=== PATIENT | female | born 1990 | race Asian ===

== ENCOUNTER 2019-10-09 06:00 | Inpatient (IN) | payer OTHER ==
[2019-10-09] MEDS ORDERED: AMPICILLIN - 2 GM in SODIUM CHLORIDE 100 ML IVPB ONE (08:15)
[2019-10-09] MEDS ORDERED: LACTATED RINGERS SOLUTION 1,000 ML IV SCH (08:15)
[2019-10-09] MEDS ORDERED: PROMETHAZINE HCL 25 MG/1 ML VIAL IVPB ONE (08:15)
[2019-10-09] MEDS ORDERED: BUTORPHANOL TARTRATE 2 MG/ML VIAL IVPB ONE (08:15)
[2019-10-09 08:31] VITALS: BMI 31.4
[2019-10-09 09:07] LABS: INR 0.92 (0.83-1.09); PROTHROMBIN TIME (PATIENT) 10.8 SEC (9.7-13.0)
[2019-10-09 09:10] LABS: ACTIVATED PTT 29.5 SECONDS (25.2-36.5)
[2019-10-09] MEDS ORDERED: AMPICILLIN SODIUM 2 GM VIAL ONE (09:10)
[2019-10-09 09:12] LABS: BASO % 0.5 % (0-2.0); EOS % 0.7 % (0-4.5); HEMOGLOBIN 13.9 GM/dL (10.7-15.3); LYMPH % 23.8 % (8-40); MCH 30.1 pg (25.7-33.7); PLATELET COUNT 140 K/MM3 (134-434); RBC 4.62 M/mm3 (3.60-5.2); WHITE BLOOD COUNT 8.9 K/mm3 (4.0-10.0)
[2019-10-09 09:27] LABS: CALCIUM 8.9 mg/dL (8.5-10.1); CREATININE 0.5 mg/dL (0.55-1.3); POTASSIUM 3.6 mmol/L (3.5-5.1)
[2019-10-09] MEDS ORDERED: PROMETHAZINE HCL 25 MG/1 ML VIAL ONE (12:19)
[2019-10-09] MEDS ORDERED: BUTORPHANOL TARTRATE 1 MG/ML VIAL ONE ×2 (12:19)
[2019-10-09 12:58] LABS: HIV INTERPRETATION NEGATIVE (NEGATIVE)
[2019-10-09] MEDS ORDERED: OXYTOCIN 20 UNITS in 0.9% NS 20 UNIT/1,000 ML INFUS.BAG IV ONE (14:59)
[2019-10-09] MEDS ORDERED: OXYTOCIN 30 UNITS in 0.9% NS 30 UNIT/500 ML INFUS.BAG IVPB ONE (15:38)
[2019-10-09] MEDS ORDERED: BENZOCAINE 28 GM HEMORRHOIDAL OINTMENT TP PRN (21:19)
[2019-10-09] MEDS ORDERED: WITCH HAZEL 50% (TUCKS) 40 PAD/JAR PAD TP PRN (21:19)
[2019-10-09] MEDS ORDERED: METHYLERGONOVINE MALEATE 0.2 MG/1 ML AMP IM PRN (21:19)
[2019-10-09] MEDS ORDERED: BENZOCAINE 20% 57 GM BOTTLE TP PRN (21:19)
[2019-10-09] MEDS ORDERED: BISACODYL 10 MG SUPP.RECT RC PRN (21:19)
[2019-10-09 21:21] LABS: CORD BASE EXCESS -6.7 mmol/L (0-2); CORD PCO2 43.9 mmHg (30-78); CORD pH 7.276 (7.14-7.44)
[2019-10-09] MEDS: ACETAMINOPHEN 325 MG TABLET (FP) PO PRN (22:10)
[2019-10-09] MEDS: IBUPROFEN 600 MG TABLET (FP) PO PRN (22:10)
[2019-10-10 09:08] LABS: BASO % 0.2 % (0-2.0); EOS % 0.2 % (0-4.5); HEMATOCRIT 39.9 % (32.4-45.2); HEMOGLOBIN 13.3 GM/dL (10.7-15.3); LYMPH % 13.3 % (8-40); MCH 30.6 pg (25.7-33.7); MCHC 33.3 g/dl (32.0-36.0); MEAN CELL VOLUME 91.7 fl (80-96); MEAN PLT VOLUME 11.4 fl (7.5-11.1); MONO % 8.5 % (3.8-10.2); NEUT % 77.8 % (42.8-82.8); PLATELET COUNT 143 K/MM3 (134-434); RBC 4.35 M/mm3 (3.60-5.2); RDW 15.1 % (11.6-15.6); WHITE BLOOD COUNT 16.6 K/mm3 (4.0-10.0)
[2019-10-10] MEDS: ACETAMINOPHEN 325 MG TABLET (FP) PO PRN (20:04)
[2019-10-10] MEDS: IBUPROFEN 600 MG TABLET (FP) PO PRN (20:05)
[2019-10-10] MEDS ORDERED: SENNOSIDES/DOCUSATE COMBO (SENNA PLUS) TABLET (UD) PO PRN (22:00)
[2019-10-11 13:53] VITALS: BP 101/68; PULSE 100; TEMP 97.4
== END 2019-10-11 13:00 | disposition home or self-care (01) | DRG 560 ==
LOC: JDEL 06:00 → JLDR 08:15 → J3W 21:10
PROVIDERS: ADMIT Obstetrics & Gynecology; ATTEND Obstetrics & Gynecology
PROC: 10E0XZZ Delivery of Products of Conception, External Approach (ICD-10-PCS; principal; 2019-10-09)
PROC: 0W8NXZZ Division of Female Perineum, External Approach (ICD-10-PCS; 2019-10-09)
PROC: 10907ZC Drainage of Amniotic Fluid, Therapeutic from Products of Conception, Via Natural or Artificial Opening (ICD-10-PCS; 2019-10-09)
DX: O80 Encounter for full-term uncomplicated delivery (principal); Z3A.38 38 weeks gestation of pregnancy; Z37.0 Single live birth
CPT/HCPCS: 36415; 36600; 59409; 80048; 82803; 85025; 85610; 85730; 86780; 86850; 86900; 86901; 87389; U0003